=== PATIENT | female | born 1960 | race Caucasian/White ===

== ENCOUNTER 2017-05-24 06:14 | Day surgery (SDC) | payer OTHER ==
[~2017-05-24] VITALS: Ht 154.9 cm; Wt 65.7 kg
[2017-05-24 07:04] VITALS: Ht 154.9 cm; Wt 65.7 kg
[2017-05-24] MEDS ORDERED: ASPI-535 PO (07:11)
[2017-05-24 07:24] VITALS: BP 121/60; PULSE 60; RESP 17
--- NOTE | 2017-05-24 08:36 | OPPN ---
Date/Time of Note Date/Time of Note DATE: 05/24/17 TIME: 08:35 Operative Report Preoperative Diagnosis Abdominal pain Screening colonoscopy Postoperative Diagnosis Gastritis Small rectal polyp was removed Melanosis coli Internal hemorrhoids Operation/Procedure Performed Colonoscopy and biopsy Esophagogastroduodenoscopy and biopsy Surgeon see signature line psychologist research assistant None Anesthesia: moderate sedation Estimated blood loss: none Transfusion Required none Specimen Gastric mucosal biopsy Colon polyp biopsy Grafts/Implants none Complications none YADIRA JESSICA MD May 24, 2017 08:36
[2017-05-24] MEDS ORDERED: FENTAnyl 50 MCG/ML VIAL ONE (08:38)
[2017-05-24] MEDS ORDERED: MIDAZOLAM 1 MG/ML 2 ML INJ ONE (08:38)
[2017-05-24 09:00] VITALS: BP 105/60; RESP 20
--- NOTE | 2017-05-24 12:14 | GILP ---
DATE OF PROCEDURE: 05/24/2017 NAME OF PROCEDURES: 1. Esophagogastroduodenoscopy and biopsy. 2. Colonoscopy and biopsy. SURGEON: Yadira Juarez MD PREOPERATIVE DIAGNOSES: 1. Abdominal pain. 2. Screening colonoscopy. POSTOPERATIVE DIAGNOSES 1. Gastritis with erosions. 2. Gastric mucosal biopsies were taken for Helicobacter pylori test. 3. Colonoscopy all the way to the cecum. 4. Melanosis coli. 5. Small rectal polyp was removed. 6. Internal hemorrhoids. INDICATION FOR THE PROCEDURE: Ms. Lucie Zavala is a 56-year-old female patient who had upper abdomin al pain, not responding to therapy. She also needed screening colonoscopy. The procedures and possible complications are well explained to the patient. The patient understood and consented to the procedure. DESCRIPTION OF PROCEDURE: Under the influence of fentanyl and Versed, the gastroscope was carefully introduced into the esophagus and under direct vision, it was advanced to the stomach and through t he pylorus into the duodenal bulb and descending duodenum. FINDINGS: ESOPHAGUS: The mucosa was normal. STOMACH: The patient had gastritis with erosions. Gastric mucosal biopsies were taken for H. pylor i test. DUODENUM: Normal. The colonoscope was carefully introduced in the rectum and under direct vision, it was advanced all the way to the cecum. FINDINGS: The patient had melanosis coli. She had a small rectal polyp and it was removed using th e biopsy forceps. She had internal hemorrhoids. She tolerated the procedures very well and there was no complication from the procedures. At the en d of the procedures, she was awake with stable vital signs and she was discharged home to the care o f her family. IMPRESSION: Please see postoperative diagnoses. PLAN: 1. Omeprazole 40 mg p.o. q.a.m. 2. Await H. pylori test report. 3. Next screening colonoscopy in 10 years. Dictated By: YADIRA ABERNATHY/CANDY Conf#: [id number] DID#: [id number]
== END 2017-05-24 17:21 | disposition home or self-care (01) ==
LOC: GIL 06:14
PROVIDERS: ATTEND Internal Medicine Gastroenterology
DX: Z12.11 Encounter for screening for malignant neoplasm of colon (principal); D12.7 Benign neoplasm of rectosigmoid junction; K63.89 Other specified diseases of intestine; K64.8 Other hemorrhoids
CPT/HCPCS: 43239; 45380; 87081; 88305; J2250; J3010; Z7610